=== PATIENT | female | born 1955 | race Caucasian/White ===

== ENCOUNTER 2022-12-06 11:12 | Emergency (ER) | payer MEDICARE, SELFPAY ==
[2022-12-06 11:15] VITALS: BP 140/84; PULSE 94; RESP 22; TEMP 36.9; O2SAT 97; BMI 37.6
[2022-12-06 11:44] LABS: Absolute Neutrophil Count 3.9 X10^3/uL (2.0-7.7); Basophil# 0.06 X10^3/uL; Eosinophil# 0.04 X10^3/uL; Eosinophils% 0.7 % (0-5); Hemoglobin 14.2 g/dL (12.0-15.0); Lymphocyte % 28.2 % (19-41); Mean Corp Hgb Conc 32.3 g/dL (32-36); Mean Corpuscular Volume 86.8 fL (81-99); Mean Platelet Vol. 11.6 fl (6.2-12.0); Monocyte# 0.35 X10^3/uL; Monocyte% 5.8 % (0-10); NRBC Flagged by Analyzer 0 % (0-5); Neutrophil # 3.85 X10^3/uL (2.7-7.7); Platelet Count 258 K/mm3 (150-450); RBC Distribution Width CV 12.7 % (11.6-14.6); RBC Distribution Width SD 39.5 fl (35.1-43.9); Red Blood Count 5.07 M/mm3 (4.2-5.4)
[2022-12-06 12:03] LABS: ALB/GLOB Ratio 0.8 RATIO (0.9-2.4); AST(SGOT) 14 U/L (15-37); Alanine Aminotransfer ALT/SGPT 23 U/L (13-56); Albumin, Serum 3.5 g/dL (3.2-5.0); Alkaline Phosphatase 99 U/L (45-117); Anion Gap 6 (5-15); BUN 22 mg/dL (7-18); BUN/Creat Ratio 19.8 RATIO (10-20); Calcium,Total 9.5 mg/dL (8.5-10.1); Chloride 105 mmol/L (98-107); Creatinine, Serum 1.11 mg/dL (0.55-1.02); EST Glomerular Filtration Rate 52 mL/min (>60); Est Glom Filt Rate - Afr Amer 63 mL/min (>60); Estimated Creatinine Clearance 40.68 ml/min; Globulin 4.2 g/dL (2.2-4.2); Glucose 362 mg/dL (74-106); Potassium 4.2 mmol/L (3.5-5.1); Protein, Total 7.7 g/dL (6.4-8.2); Sodium Level 137 mmol/L (136-145)
[2022-12-06 12:29] LABS: Bacteria 0 SEEN /hpf (None Seen); Mucous, Urine 0 SEEN /hpf (<or=2+); Red Blood Cells-Urine 0 SEEN /hpf (0-5); Squamous Epithelial Cells - UA 0 SEEN /hpf (5-10)
[2022-12-06 12:33] LABS: Color, Urine Yellow (Yellow); Glucose, Dipstick 1000 mg/dl (Normal); Ketone-Dipstick Negative (Negative); Leukocyte Esterase-Dipstick 100 /ul (Negative); Nitrite-Dipstick Negative (Negative); Occult Blood-Urine 25 /ul (Negative); Protein-Dipstick 15 mg/dl (Negative); Specific Gravity, Urine 1.015 (1.002-1.030); Urine Bilirubin Dipstick Negative (Negative); Urine Clarity Clear (Clear); Urine Urobilinogen Normal (Normal)
[2022-12-06] MEDS: Ondansetron 4 MG/2 ML Vial IV (12:37)
[2022-12-06] MEDS: HYDROmorphone 1 MG/ML Syringe 0.5 MG IV (12:38)
[2022-12-06 12:41] LABS: White Blood Cells 0-5 SEEN /hpf (0-5)
[2022-12-06 12:53] VITALS: BP 159/68; PULSE 88; RESP 18; O2SAT 92
[2022-12-06 13:32] LABS: Bilirubin, Direct 0.15 mg/dL (0.00-0.30); Lipase 95 U/L (13-75)
--- NOTE | 2022-12-06 13:42 | EDS_ITS ---
HPI History of Present Illness Chief Complaint: Abd Pain Detail of Chief Complaint: Upper quadrant pain with nausea and vomiting Informant: patient Onset/Context/Timing Onset: Today (829) Context: Sudden Onset Timing: Intermittent and Waxes and wanes Quality: Colicky pain Location: Left Current Severity: Mild Maximum Severity: Moderate Worsened by: Nothing specific Relieved by: Nothing Associated Symptoms Associated Symptoms: Nausea and vomiting Narrative Narrative: Patient is a 66-year-old woman with history of pancreatitis who presents with nausea vomiting left upper quadrant pain. She denies alcohol use. She denies respiratory symptoms. She denies cardiac symptoms. Denies fever, chills night sweats. She does report dry mouth and thirst. She denies orthostatic symptoms. Patient denies polydipsia, polyuria or nocturia. She does have type 1 diabetes as well as GERD and hypertension. She denies black or maroon-colored stool. She denies hematemesis or coffee- ground emesis. Prior similar symptoms: Yes Recent Illness/Hospitalization: No PFSH PFSH Medical History Benign pancreatic tumor Chronic pancreatitis Depression Hypertension Type 2 diabetes mellitus Home Medications amlodipine 5 mg tablet 10 mg PO DAILY HTN 12/06/22 [History Last Taken 12/05/22] atenolol 25 mg tablet 25 mg PO BID HTN 12/06/22 [History Last Taken 12/06/22] buspirone 10 mg tablet 20 mg PO BID . 12/06/22 [History Last Taken 12/06/22] escitalopram oxalate 20 mg tablet 20 mg PO DAILY MOOD 12/06/22 [History Last Taken 12/05/22] hydrocodone-acetaminophen 5-325mg 5mg-325mg 1 tab PO Q6H PRN PRN Pain 3 days #10 TABLETS 12/06/22 [Rx Last Taken Unknown] insulin aspart U-100 100 unit/mL (3 mL) subcutaneous pen (Novolog FlexPen U-100 Insulin aspart) See Rx Instructions .Route .COMPLEX DM 12/06/22 [History Last Taken 12/06/22] insulin glargine 100 unit/mL (3 mL) subcutaneous pen (Basaglar KwikPen U-100 Insulin) 12 unit subcut DAILY DM 12/06/22 [History Last Taken 12/05/22] lisinopril 20 mg-hydrochlorothiazide 12.5 mg tablet 1 tab PO DAILY HTN 12/06/22 [History Last Taken 12/05/22] ondansetron 4 mg disintegrating tablet 4 mg PO Q6H PRN Nausea 12/06/22 [History Last Taken 12/06/22] ondansetron 4 mg disintegrating tablet 4 mg PO Q8H PRN PRN Nausea #10 tabs 12/06/22 [Rx Last Taken Unknown] pantoprazole 40 mg tablet,delayed release 40 mg PO DAILY GERD 12/06/22 [History Last Taken 12/06/22] promethazine 25 mg tablet 25 mg PO DAILY PRN Nausea 12/06/22 [History Last Taken 2 Weeks Ago ~11/22/22] spironolactone 25 mg tablet 25 mg PO DAILY HTN 12/06/22 [History Last Taken 12/06/22] Allergy/AdvReac Type Severity Reaction Status Date / Time fentanyl AdvReac Other Verified 12/06/22 12:01 morphine AdvReac Other Verified 12/06/22 12:01 topiramate [From Topamax] AdvReac Other Verified 12/06/22 12:01 Surgical History History of biliary duct stent placement History of cholecystectomy Social History (Updated 12/06/22 @ 13:[address] Gurmeet Jurado MD) household members: none Smoking Status: Never smoker substance use type: does not use ROS ROS ED Constitutional Constitutional ED: Denies chills, fever(s), subjective, sweats or weight loss Eyes Eyes: Denies blurry vision, change in vision or diplopia ENT ENT ED: Denies ear pain, rhinorrhea or sore throat Cardiovascular Cardiovascular: Denies chest pain, orthopnea, palpitations, paroxysmal nocturnal dyspnea or racing heartbeat Respiratory/Chest Respiratory/Chest: Denies cough, dyspnea, dyspnea on exertion, orthopnea or paroxysmal nocturnal dyspnea Gastrointestinal Gastrointestinal: Reports abdominal pain, nausea and vomiting; Denies constipation, diarrhea or melena Genitourinary Genitourinary ED: Denies dysuria, hematuria or urinary frequency Musculoskeletal Musculoskeletal: Denies arthralgias, back pain, myalgias or neck pain Integumentary Denies abscess, Abrasions or rash Neurologic Neurologic: Reports weakness; Denies headache(s) or paresthesias Psychiatric Psychiatric: Denies anxiety or depression Endocrine Endocrinology: Reports cold intolerance and heat intolerance Hematologic/Lymphatic Hematologic/Lymphatic: Reports systems reviewed and no addt'l complaints, except as documented EXAM Physical Exam Const Vital Signs: 12/06/22 11:15 12/06/22 12:53 Temperature 98.4 F Temperature Source Temporal Pulse Rate 94 88 Respiratory Rate 22 H 18 Blood Pressure 140/84 H 159/68 H Blood Pressure Mean 102 98 Pulse Ox 97 92 Oxygen Delivery Method Room Air Room Air MDM MDM Lab Data Attestation: I reviewed the patient's lab results. Lab results narrative: CBC is normal. Comprehensive metabolic panel reveals creatinine of 1.11 with a GFR of 52 white count is 362 with a normal CO2 anion gap. Lipase is elevated 95 Labs: Laboratory Results - last 24 hr 12/06/22 12/06/22 12/06/22 11:35 11:35 11:35 WBC 6.0 RBC 5.07 Hgb 14.2 Hct 44.0 MCV 86.8 MCH 28.0 MCHC 32.3 RDW Std Deviation 39.5 RDW Coeff of Geraldo 12.7 Plt Count 258 MPV 11.6 Immature Gran % (Auto) 0.300 Neut % (Auto) 64.0 Lymph % (Auto) 28.2 [place] % (Auto) 5.8 Eos % (Auto) 0.7 Baso % (Auto) 1.0 Absolute Neuts (auto) 3.9 Absolute Lymphs (auto) 1.70 Nucleated RBC % 0 Sodium 137 Cancelled Potassium 4.2 Cancelled Chloride 105 Cancelled Carbon Dioxide 26.0 Cancelled Anion Gap 6 Cancelled BUN 22 H Cancelled Creatinine 1.11 H Cancelled Estim Creat Clear Calc 40.68 Est GFR (MDRD) Af Amer 63 Cancelled Est GFR (MDRD) Non-Af 52 L Cancelled BUN/Creatinine Ratio 19.8 Cancelled Glucose 362 H Cancelled Calcium 9.5 Cancelled Total Bilirubin 0.50 Cancelled Direct Bilirubin 0.15 AST 14 L Cancelled ALT 23 Cancelled Alkaline Phosphatase 99 Cancelled Total Protein 7.7 Cancelled Albumin 3.5 Cancelled Globulin 4.2 Cancelled Albumin/Globulin Ratio 0.8 L Lipase 95 H Urine Color Urine Clarity Urine pH Ur Specific [place] Urine Protein Urine Glucose (UA) Urine Ketones Urine Occult Blood Urine Nitrite Urine Bilirubin Urine Urobilinogen Ur Leukocyte Esterase Urine RBC Urine WBC Ur Squamous Epith Cells Urine Bacteria Urine Mucus 12/06/22 12:28 WBC RBC Hgb Hct MCV MCH MCHC RDW Std Deviation RDW Coeff of Geraldo Plt Count MPV Immature Gran % (Auto) Neut % (Auto) Lymph % (Auto) [place] % (Auto) Eos % (Auto) Baso % (Auto) Absolute Neuts (auto) Absolute Lymphs (auto) Nucleated RBC % Sodium Potassium Chloride Carbon Dioxide Anion Gap BUN Creatinine Estim Creat Clear Calc Est GFR (MDRD) Af Amer Est GFR (MDRD) Non-Af BUN/Creatinine Ratio Glucose Calcium Total Bilirubin Direct Bilirubin AST ALT Alkaline Phosphatase Total Protein Albumin Globulin Albumin/Globulin Ratio Lipase Urine Color Yellow Urine Clarity Clear Urine pH 6.0 Ur Specific [place] 1.015 Urine Protein 15 H Urine Glucose (UA) 1000 H Urine Ketones Negative Urine Occult Blood 25 H Urine Nitrite Negative Urine Bilirubin Negative Urine Urobilinogen Normal Ur Leukocyte Esterase 100 H Urine RBC 0 SEEN Urine WBC 0-5 SEEN Ur Squamous Epith Cells 0 SEEN Urine Bacteria 0 SEEN Urine Mucus 0 SEEN Discharge Plan Triage Chief Complaint: Abd Pain Other Complaint: Nausea/Vomiting ED Provider: Gurmeet Jurado Dx/Rx/DC Orders Clinical Impression: Abdominal pain, acute, left upper quadrant, Elevated lipase, Nausea & vomiting, Type 1 diabetes mellitus with hyperglycemia, Acute kidney insufficiency Instructions: ED Pancreatitis, ED Renal Insufficiency Prescriptions: New hydrocodone-acetaminophen [hydrocodone-acetaminophen] 5-325 mg tablet 1 tab PO Q6H PRN PRN (Reason: Pain) 3 Days Qty: 10 0RF ondansetron [ondansetron] 4 mg tablet,disintegrating 4 mg PO Q8H PRN PRN (Reason: Nausea) Qty: 10 0RF No Action lisinopril-hydrochlorothiazide 20-12.5 mg tablet 1 tab PO DAILY Label Comments: TAKE 1 TABLET BY MOUTH ONCE DAILY atenolol 25 mg tablet 25 mg PO BID Label Comments: TAKE 1 TABLET BY MOUTH TWICE DAILY amlodipine 5 mg tablet 10 mg PO DAILY Label Comments: TAKE 2 TABLETS BY MOUTH ONCE DAILY spironolactone 25 mg tablet 25 mg PO DAILY Label Comments: TAKE 1 TABLET BY MOUTH ONCE DAILY pantoprazole 40 mg tablet,delayed release (DR/EC) 40 mg PO DAILY Label Comments: TAKE 1 TABLET BY MOUTH ONCE DAILY buspirone 10 mg tablet 20 mg PO BID Label Comments: TAKE 2 TABLETS BY MOUTH TWICE DAILY promethazine 25 mg tablet 25 mg PO DAILY PRN (Reason: Nausea) Label Comments: TAKE 1 TABLET BY MOUTH ONCE DAILY NEEDED FOR NAUSEA AND VOMITING ondansetron 4 mg tablet,disintegrating 4 mg PO Q6H PRN (Reason: Nausea) Label Comments: DISSOLVE 1 TABLET IN MOUTH EVERY 6 HOURS NEEDED escitalopram oxalate 20 mg tablet 20 mg PO DAILY Label Comments: TAKE 1 TABLET BY MOUTH ONCE DAILY insulin aspart U-100 [Novolog FlexPen U-100 Insulin] 100 unit/mL (3 mL) insulin pen See Rx Instructions .ROUTE .COMPLEX Label Comments: SLIDING SCALE DOSE SUBCUTANEOUSLY. USE DIRECTED; 141-180 2 UNITS, 181-220 3 UNITS, 221-260 4 UNITS, 261-300 6 UNITS, OVER 301 8 UNITS. MAX 24 UNITS DAILY Rx Instructions: SLIDING SCALE: 141-180 2 UNITS, 181-220 3 UNITS, 221-260 4 UNITS, 261-300 6 UNITS, > 300 8 UNITS. MAX 24 UNITS DAILY. insulin glargine [Basaglar KwikPen U-100 Insulin] 100 unit/mL (3 mL) insulin pen 12 unit SUBCUT DAILY Label Comments: INJECT 12 UNITS SUBCUTANEOUSLY ONCE DAILY Primary Care Provider: SOBEIDA CAN Referrals: SOBEIDA CAN [Other] - 3-5 Days if not improving Disposition Disposition: Home, Self Care
[2022-12-06 13:57] VITALS: BP 156/66; PULSE 79; RESP 18; O2SAT 95
== END 2022-12-06 14:04 | disposition home or self-care (01) ==
PROVIDERS: Emergency Provider Emergency Medicine; Visit Provider Emergency Medicine
DX: R10.11 Right upper quadrant pain (principal); E10.65 Type 1 diabetes mellitus with hyperglycemia; Z79.4 Long term (current) use of insulin; R74.8 Abnormal levels of other serum enzymes; R11.2 Nausea with vomiting, unspecified; N28.9 Disorder of kidney and ureter, unspecified; I10 Essential (primary) hypertension; F32.A Depression, unspecified; Z79.899 Other long term (current) drug therapy
CPT/HCPCS: 80053; 81001; 82248; 83690; 85025; 96374; 96375; 99283; A4216; J2405